=== PATIENT | female | born 1945 | race Caucasian/White ===

== ENCOUNTER → 2017-01-06 | Outpatient (CLI) | payer OTHER | LOC: BMCIMAGING 07:34 | DX: Z12.31 Encounter for screening mammogram for malignant neoplasm of breast (principal) | CPT/HCPCS: G0202 ==

== ENCOUNTER → 2018-02-04 | Outpatient (CLI) | payer OTHER | LOC: BMCIMAGING 12:55 | PROVIDERS: ATTEND Internal Medicine | DX: Z12.31 Encounter for screening mammogram for malignant neoplasm of breast (principal) ==

== ENCOUNTER → 2018-03-19 | Outpatient (CLI) | payer OTHER | LOC: FIMAGING 10:16 → EDSTATUS 10:17 | PROVIDERS: ATTEND Specialist | DX: N20.0 Calculus of kidney (principal) ==

== ENCOUNTER 2019-01-12 09:43 | Inpatient (IN) | payer OTHER ==
--- NOTE | 2019-01-12 06:37 | PDHPUP ---
History & Physical Update H&P update statement: This history and physical update is based on an assessment of the patient which was completed after admission or registration (within 24 hours), but prior to the surgery/procedure. H&P update: H&P reviewed & patient examined, no change in patient's condition since H&P completed
[2019-01-12] MEDS ORDERED: ceFAZolin 2 GM/DEXTROSE 100 ML IV ONE (09:50)
[2019-01-12] MEDS ORDERED: GABAPENTIN 300 MG CAP PO ONE (09:50)
[2019-01-12] MEDS ORDERED: ACETAMINOPHEN 500 MG TAB PO ONE (09:50)
[2019-01-12] MEDS ORDERED: LIDOCAINE 1% 2 ML INJ ID PRN (09:52)
[2019-01-12] MEDS ORDERED: LR 1,000 ML IV ONE (09:52)
[2019-01-12] MEDS ORDERED: BUPIVACAINE 0.25% 30 ML SDV ONE ×2 (10:04→11:02)
[2019-01-12] MEDS ORDERED: CHLORHEXIDINE GLUC HIBICLENS 118 ML BTL TP ONE ×2 (10:04→11:02)
[2019-01-12] MEDS ORDERED: THROMBIN (BOVINE) 5,000 UNIT VIAL TP ONE (10:04)
[2019-01-12] MEDS ORDERED: EPINEPHrine 1 MG/ML INJ ONE ×2 (10:05→11:02)
[2019-01-12] MEDS ORDERED: BACITRACIN 50,000 UNITS/10 ML SYR IRR ONE ×2 (10:05→11:02)
[2019-01-12] MEDS ORDERED: THROMBIN (BOVINE) 20,000 UNIT VIAL TP ONE (11:06)
--- NOTE | 2019-01-12 11:10 | PDANEPAE ---
ANE Past Medical History - Cardiovascular History Hx Hypertension: No Hx Arrhythmias: No Hx Chest Pain: No Hx Coronary Artery / Peripheral Vascular Disease: No Hx CHF / Valvular Disease: No Hx Palpitations: No Cardiovascular History Comment: Pt. denies HTN, states usual SBP is around 110. - Pulmonary History Hx COPD: No Hx Asthma/Reactive Airway Disease: No Hx Recent Upper Respiratory Infection: No Hx Oxygen in Use at Home: No Hx Sleep Apnea: No Sleep Apnea Screening Result - Last Documented: Negative - Neurologic History Hx Cerebrovascular Accident: No Hx Seizures: No Hx Dementia: No - Endocrine History Hx Diabetes: No Obesity: no - Renal History Hx Renal Disorders: No - Liver History Hx Hepatic Disorders: No - Neurological & Psychiatric Hx Hx Neurological and Psychiatric Disorders: No - Cancer History Hx Cancer: No - Congenital Disorder History Hx Congenital Disorders: No - GI History GERD: no Hx Gastrointestinal Disorders: No - Other Health History Other Health History: wears glasses. esophageal dysmotility - Chronic Pain History Chronic Pain: Yes (back) - Surgical History Prior Surgeries: lami and discectomy 1988. l4-5, l5-s1 fusion in 2003. l3-4 fusion in 2009. hysterectomy 1996. left meniscus repair in 1999. left shoulder scope, rtc with Virgilio 09/16/11 ANE Review of Systems Review of Systems: - Exercise capacity METS (RN): 4 METS ANE Patient History - Allergies Allergies/Adverse Reactions: acetaminophen [From Percocet] Allergy (Verified 12/27/18 11:12) NAUSEA aspirin [From Percodan] Allergy (Verified 12/27/18 11:12) NAUSEA fentanyl [Fentanyl] Allergy (Verified 12/27/18 11:12) NAUSEA hydrocodone bitartrate [From Vicodin] Allergy (Verified 12/27/18 11:12) NAUSEA oxycodone HCl [From Percocet] Allergy (Verified 12/27/18 11:12) NAUSEA oxycodone terephthalate [From Percodan] Allergy (Verified 12/27/18 11:12) NAUSEA - Home Medications Home Medications: Estradiol [Estradiol 1 MG (*)] 1 mg PO DAILY 12/20/18 [Last Taken 01/10/19] Latanoprost 0.005% [Xalatan 0.005% (*)] 1 drops EACHEYE HS 12/20/18 [Last Taken 01/11/19 22:00] Naproxen Sodium [Aleve 220 MG (*)] 220 mg PO BID PRN 12/20/18 [Last Taken ] Timolol 0.5% [TIMOPTIC 0.5% (*)] 1 drops EACHEYE BID 12/20/18 [Last Taken 07:30] - Anes Hx Anes Hx: no prior problems - Smoking Hx Smoking Status: Former smoker Marijuana use: No - Alcohol Use Alcohol Use: None - Family Anes Hx Family Anes Hx: none Family Hx Anesthesia Complications: none ANE Labs/Vital Signs - Vital Signs Blood Pressure: 151/79 Heart Rate: 62 O2 Sat (%): 98 Height: 159.5 cm Weight: 47.9 kg ANE Physical Exam - Airway Neck exam: FROM Mallampati Score: Class 2 Mouth exam: normal dental/mouth exam - Pulmonary Pulmonary: clear to auscultation - Cardiovascular Cardiovascular: regular rate and rhythym - ASA Status ASA Status: II ANE Anesthesia Plan Anesthesia Plan: general endotracheal anesthesia
[2019-01-12] MEDS ORDERED: LACTULOSE 20 GM/30 ML UDCUP PO PRN (11:11)
[2019-01-12] MEDS ORDERED: BISACODYL 10 MG SUPP PR PRN (11:11)
[2019-01-12] MEDS ORDERED: HYDROmorphONE/DILAUDID 1 MG/ML INJ IVP PRN (11:11)
[2019-01-12] MEDS ORDERED: MAGNESIUM HYDROXIDE 30 ML UDCUP PO PRN (11:11)
[2019-01-12] MEDS ORDERED: ONDANSETRON 4 MG/2 ML VIAL IVP PRN ×2 (11:11→15:28)
[2019-01-12] MEDS ORDERED: diphenhydrAMINE 25 MG CAP PO PRN (11:11)
[2019-01-12] MEDS ORDERED: NS 1,000 ML IV SCH (11:15)
[2019-01-12] MEDS ORDERED: DEXAMETHASONE 4 MG/ML VIAL ONE (11:28)
[2019-01-12] MEDS ORDERED: PROPOFOL/EMULSION 500 MG/50 ML BOTTLE IV ONE (11:28)
[2019-01-12] MEDS ORDERED: PHENYLEPHRINE 10 MG/ML SDV ONE (11:47)
--- NOTE | 2019-01-12 11:49 | PDMN ---
Medical Necessity Medical necessity: [facility] IP only surgery; cpt 38016 Lumbar Fusion (L1-L3 TLIF w/ tie in fusion)
[2019-01-12] MEDS ORDERED: ePHEDrine SULFATE 25 MG/5 ML SYR ONE (13:02)
[2019-01-12] MEDS ORDERED: ceFAZolin 2 GM/DEXTROSE 100 ML IV SCH (14:00)
[2019-01-12] MEDS ORDERED: PROPOFOL 200 MG/20 ML VIAL ONE (14:31)
[2019-01-12] MEDS ORDERED: NALOXONE HCL 0.4 MG/ML INJ IVP PRN (15:28)
--- NOTE | 2019-01-12 16:03 | POSTOPPROG ---
Post Op Note Date of Operation: 01/12/19 Surgeon: Reva Bell Inspector Air Carrier: KWADWO Bermeo Anesthesiologist: MD Titus Anesthesia: GET(General Endotracheal), Local (Specify) Pre-op Diagnosis: lumbar stenosis L1/2 and L2/3 Post-op Diagnosis: lumbar stenosis L1/2 and L2/3 Indication: LE pain/LBP Procedure: TLIF L1/2 and L2/3 with PSF L1-L4 Findings: see op report Inf/Abcess present in the surg proc area at time of surgery?: No Depth: Deep Incisional (Fascial) EBL: 100-500 Total fluids administered: see anesthesia report Complications: none Drains: Rod Coronado
--- NOTE | 2019-01-12 16:10 | SOAPPROG ---
SOAP Progress Note Assessment/Plan: Post Op Visit: S: Awake and alert. NAD. Pt with expected lower back pain O: AFVSS/PERRLA/EOMI no droop CN 2-12 grossly intact +lt touch 5/5 BUE/BLE = CDI MADI in place A/P: 73 yo female that is s/p L1/2 and L2/3 TLIF with tie into L1-L4 fusion ( prior hx of fusion down to S1) -orders in place -call with any questions or concerns -pt seen by Dr Bell -PT/OT in am -brace when out of bed-pt has brace at home -no B/T/L -Pt understands and agrees 01/12/19 16:11 Objective: Vital Signs Temp Pulse Resp BP Pulse Ox 36.9 C 62 16 151/79 H 98 01/12/19 10:42 01/12/19 12:30 01/12/19 10:42 01/12/19 12:30 01/12/19 12:30 ICD10 Worksheet Patient Problems: Problems Problem Status Onset Arthrodesis status Acute Lumbar radicular pain Acute Lumbar stenosis Acute - ICD10 Problem Qualifiers (1) Lumbar stenosis (2) Lumbar radicular pain (3) Arthrodesis status
--- NOTE | 2019-01-12 16:17 | POSTANESTH ---
Post Anesthetic Evaluation Cardiovascular Status: Similar to Pre-Op Cond Respiratory Status: Normal, Stable Level of Consciousness/Mental Status: Can Participate in Eval Pain Control: Adequate, Prn Tx Ordered Nausea/Vomiting Control: Adequate, Prn Tx Ordered Complications Possibly Related to Anesthesia: None Noted
[2019-01-12] MEDS ORDERED: ONDANSETRON 4 MG/2 ML VIAL ONE (17:01)
[2019-01-12] MEDS ORDERED: HYDROmorphONE/DILAUDID 2 MG/ML INJ ONE (17:09)
[2019-01-12] MEDS: HYDROmorphONE/DILAUDID 2 MG/ML INJ IVP PRN ×3 (17:10→17:30)
[2019-01-12] MEDS: METHOCARBAMOL 750 MG TAB PO PRN (17:19)
[2019-01-12] MEDS ORDERED: METHOCARBAMOL 750 MG TAB ONE (17:19)
--- NOTE | 2019-01-12 18:03 | GOP ---
[f rep st] OPERATIVE REPORT DATE OF OPERATION: 01/12/2019 SURGEON: Lalo Bell MD NEUROSURGEON: Lalo Bell MD. 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 POSTOPERATIVE DIAGNOSIS: Adjacent segment disease, L1-2, L2-3 above a prior L3-S1 fusion, severe migue nosis L2-3, moderately severe stenosis L1-2, bilateral lumbosacral radiculopathy, left worse than rig ht, disk degenerative disease L1-2, L2-3. PROCEDURE PERFORMED: Posterior lateral and intervertebral arthrodesis with bilateral decompressions L1-2, L2-3 (49813, 20048), removal of posterior nonsegmental instrumentation at L3-4 (03177), placeme nt of new segmental instrumentation L1, L2, L3, L4 (38446), placement of biomechanical intervertebral device L1-2, L2-3, same incision bone graft harvest, microscope, spinal stereotaxis. FINDINGS: ESTIMATED BLOOD LOSS: 200 cc. INDICATIONS: The patient is a 73-year-old with a prior successful L3 to S1 fusion done not at the [facility] time, but the most recent one was a single-level fusion at L3-4 with good results. She developed severe adjacent segment disease and has had terrible symptoms really for more than 2 years and finall y decided she wanted to have surgery. She had bilateral lumbosacral radiculopathy. The left is curr ently worse than the right, but she had a history of severe right-sided lumbosacral radiculopathy as well. The risk of the surgery, including the risk of continued symptoms, nerve injury, spinal fluid leak, infection, adjacent segment disease, possible failure of the surgery to alleviate her symptoms, as well as risk of pseudoarthrosis and the need for future spine surgery was discussed. She knew th ere was risk of screw and hardware failure and malposition and she wanted to proceed. DESCRIPTION OF PROCEDURE: Patient was taken to the operating room, placed in supine position. Gener al anesthesia was begun. She was flipped prone onto the Rod table. Care was taken to pad all po ints of contact. Her back was sterilely prepped and draped in usual fashion. A localizing x-ray was taken. We made a midline incision from the spinous process of T12 down to the spinous process of L3. The peña bcutaneous tissue was dissected using plasma blade down through the fascia and a subperiosteal dissec tion was made down the L1, L2, L3, and lamina. We exposed the hardware at L3-4. We removed the hard trinh. There was no complication from the prior hardware. It was well positioned. Three of the scre ws were 6.5 mm. The left L4 screw was 7.5 mm. It was slightly lateral than the other screws, but is in good position. We decorticated the bone in this location to allow strengthening of the arthrodes is there and arthrodesis for L2 to the L3 level. We denuded the bilateral L1-2 and 2-3 facet joints. We preserved the T12-L1 facet joint. We then at tached the Connect reference frame to the spinous process, performed an O-arm spin and using frameles s Stealth stereotaxy, placed pedicle screws bilaterally at L1, L2, L3, and L4. We used 6.5 mm screws throughout, except on the left at L4 where we replaced it with a 7.5 x 45 mm screw. All the screws stimulated at acceptable levels. An O-arm spin was made, all the screws in excellent position. We t ook 100 mm rods, placed them down over the screws, distracted between L1 and L4. We were distracted on the right, and we ultimately allowed no distraction on the left. We did use initial distraction o n the left to get the right-sided over-distracted to correct her degenerative scoliosis that was abov e the fusion. We ended up cutting the jojo on the left, the size is about 95 mm jojo. We final tighte nena the cap screws according to company specification and we had reduced the degenerative scoliotic c urve for the most part. We then removed the soft tissue of the bone at L1, L2, and L3, harvested the complete L2 spinous proc ess, the inferior L1 spinous process, and the rostral L3 spinous process. Used a high-speed drill to drill bilateral laminectomies of L1-2, 2-3 and got great decompressions at both levels. We have per formed complete right-sided facetectomies at L1-2 and L2-3. To allow access to the disk space, we we nt on the right-hand side as this was the concave side of the spine, but we did really radical latera l recess decompressions on the left at L1-2 and 2-3 to get great left-sided decompressions as well. We then swept the L3 nerve root medially, and from the right-sided approach, removed the L2-3 disk an d the cartilaginous endplates. We roughened the subchondral bone to create arthrodesis. We did, lik ewise, at L1-2, sweeping the L2 nerve root medially, incising the L1-2 disk, removing the disk and th e cartilaginous endplates. We roughened the subchondral bone to create arthrodesis there. We chose a 7 mm CrESCENT cage for that level. We chose an expandable 7 x 28 mm cage at L2-3 based up on the anatomy. We then place BMP and bone into the interspace at L1-2, 2 3 and then followed this w ith the expandable cage at L2-3 and the CrESCENT cage at L1-2. X-rays were taken. The hardware was in excellent position. We then decorticated all the remaining bone posterolaterally bilaterally at L 1-2, 2-3. Final tightened all the cap screws according to company specification, placed a subfascial drain, and then closed the incision in multiple layers using Vicryl sutures. There were no complica tions. COMPLICATIONS: None. HARDWARE: Hardware removed was Possibly [employer]. It was implanted by an outside surgeon. There wa s no problem with the prior hardware. The new hardware was BECC 5.5 mm Solera system with 100 m m rods. /[id number]/MODL
[2019-01-12] MEDS: GABAPENTIN 300 MG CAP PO SCH ×2 (19:42→21:22)
[2019-01-12] MEDS: TIMOLOL 0.5% 15 ML OPHT.BTL EACHEYE SCH ×2 (19:42→23:42)
[2019-01-12] MEDS: ESTRADIOL 1 MG TAB PO SCH (19:59)
[2019-01-12] MEDS: ceFAZolin 2 GM/DEXTROSE 100 ML IV SCH (21:21)
[2019-01-12] MEDS: FAMOTIDINE 20 MG TAB PO SCH (21:21)
[2019-01-12] MEDS: ONDANSETRON DISINTEGRATING 4 MG TAB PO PRN (21:21)
[2019-01-12] MEDS: SENNOSIDES/DOCUSATE SODIUM TAB PO SCH (21:22)
[2019-01-12] MEDS: LATANOPROST 0.005% 2.5 ML OPHT DROPS EACHEYE SCH (23:42)
[2019-01-13] MEDS: METHOCARBAMOL 750 MG TAB PO PRN ×2 (03:54→11:06)
[2019-01-13] MEDS: ceFAZolin 2 GM/DEXTROSE 100 ML IV SCH (05:05)
[2019-01-13] MEDS: GABAPENTIN 300 MG CAP PO SCH (05:05)
[2019-01-13 05:39] LABS: PLATELET COUNT 171 10^3/uL (150-400)
[2019-01-13] MEDS: ONDANSETRON DISINTEGRATING 4 MG TAB PO PRN (05:40)
--- NOTE | 2019-01-13 07:59 | NEUSURGPN ---
Assessment/Plan: A/P: 73 yo female that is s/p L1/2 and L2/3 TLIF with tie into L1-L4 fusion ( prior hx of fusion down to S1) POD1 -Post op xrays pending -Continue MADI drain this am, will reval for for removal later -Optimize pain management: Increased right leg pain, gabapentin increased to 400mg PO tid this morning -PT/OT -brace when out of bed -Discussed with Dr Bell -call with any questions or concerns Subjective: right lateral /anterior leg pain. Denies any new weakness. low back pain Objective: NAD A&Ox3 MAEx4 5/5 and equal in BUE and BLE Incisional dressing c/d/i MADI drain serosanignous - Physician Discussed Patient with : Ray Neurosurgery Physical Exam - Vitals, I&O, Labs I and O 01/12/19 01/13/19 01/14/19 05:59 05:59 05:59 Intake Total 3115 Output Total 1290 Balance 1825 Weight 47.9 kg Intake: Oral (ml) 15 IV Intake (ml) 2000 IV Infused (ml) 1100 Ns 1,000 ml @ 75 mls/hr 900 IV CONT MARTHA Rx#: [id number] ceFAZolin 2 GM/DEXTROSE 200 100 ml @ 200 mls/hr IV Q8HRS MARTHA Rx#:[id number] Output: Urine (ml) 630 Catheter 630 Estimated Blood Loss (ml) 200 MADI Drain Output (ml) 460 #1 Right Back Rod 460 Coronado Vital Signs Temp Pulse Resp BP Pulse Ox 36.6 C 73 16 118/63 97 01/13/19 03:35 01/13/19 03:35 01/13/19 03:35 01/13/19 03:35 01/13/19 03:35 Laboratory Results 01/13/19 04:54 01/13/19 04:54 ICD10 Worksheet Patient Problems: Problems Problem Status Onset Arthrodesis status Acute Lumbar radicular pain Acute Lumbar stenosis Acute
[2019-01-13] MEDS ORDERED: GABAPENTIN 400 MG CAP PO SCH (08:00)
[2019-01-13] MEDS: FAMOTIDINE 20 MG TAB PO SCH ×2 (08:55→22:54)
[2019-01-13] MEDS: ESTRADIOL 1 MG TAB PO SCH (08:57)
[2019-01-13] MEDS: SENNOSIDES/DOCUSATE SODIUM TAB PO SCH ×2 (08:58→22:54)
[2019-01-13] MEDS: TIMOLOL 0.5% 15 ML OPHT.BTL EACHEYE SCH ×2 (10:44→22:55)
[2019-01-13] MEDS: GABAPENTIN 400 MG CAP PO SCH ×2 (13:21→22:53)
--- NOTE | 2019-01-13 13:56 | ASMTCMCOM ---
CM Note CM Note Notes: Pt s/p L1/2 and L2/3 TLIF with tie in fusion. OT rec home, Pt declined PT due to pain today. Pt was pre-arranged with [facility] by MD office prior to surgery, spoke with pt today and she declines C. CM to follow pt progress. Date Signed: 01/13/2019 01:55 PM Electronically Signed By:CHANCE Stark
[2019-01-13] MEDS: LATANOPROST 0.005% 2.5 ML OPHT DROPS EACHEYE SCH (22:55)
[2019-01-14] MEDS: GABAPENTIN 400 MG CAP PO SCH (05:08)
[2019-01-14] MEDS: METHOCARBAMOL 750 MG TAB PO PRN ×2 (06:15→15:54)
--- NOTE | 2019-01-14 08:22 | SOAPPROG ---
SOAP Progress Note Assessment/Plan: Assessment: 73 yo female s/p L1/2,2/3 TLIFs Ongoing right leg pain unchanged since surgery no new weakness or tingling Plan: LSO when OOB PT/OT as tolerated today xrays Lumbar spine today 01/14/19 08:20 Subjective: LYing in bed, appears comfortable, but complains of ongoing right leg pain. Unchanged since surgery Denies any new numbness, tingling or weakness Objective: Vital Signs Temp Pulse Resp BP Pulse Ox 36.7 C 71 16 145/81 H 92 01/14/19 04:47 01/14/19 04:47 01/14/19 04:47 01/14/19 04:47 01/14/19 04:47 Laboratory Results 01/13/19 04:54 01/13/19 04:54 01/13/19 01/14/19 01/15/19 05:59 05:59 05:59 Intake Total 3115 301 Output Total 1290 1725 Balance 1825 -1424 Neuro: A+Ox4 follows commands 5/5 bilateral LE,sens +LT Dressing: CDI MADI: 275ml ICD10 Worksheet Patient Problems: Problems Problem Status Onset Arthrodesis status Acute Lumbar radicular pain Acute Lumbar stenosis Acute
[2019-01-14] MEDS: SENNOSIDES/DOCUSATE SODIUM TAB PO SCH ×2 (09:24→21:08)
[2019-01-14] MEDS: ESTRADIOL 1 MG TAB PO SCH (09:25)
[2019-01-14] MEDS: TIMOLOL 0.5% 15 ML OPHT.BTL EACHEYE SCH ×2 (09:25→21:26)
[2019-01-14] MEDS: FAMOTIDINE 20 MG TAB PO SCH ×2 (09:25→21:08)
[2019-01-14] MEDS: GABAPENTIN 300 MG CAP PO SCH ×3 (15:20→21:07)
[2019-01-14] MEDS: POLYETHYLENE GLYCOL 3350 17 GM PKT PO PRN (15:53)
[2019-01-14] MEDS: LATANOPROST 0.005% 2.5 ML OPHT DROPS EACHEYE SCH (21:26)
[2019-01-15] MEDS: GABAPENTIN 300 MG CAP PO SCH ×3 (06:05→21:08)
--- NOTE | 2019-01-15 09:34 | SOAPPROG ---
SOAP Progress Note Assessment/Plan: Assessment: 73 yo F POD #3 L1-3 TLIF Plan: neuro: stable, nerve pain in right anterior thigh with walking, on neurontin, will follow for now PT/OT post op x-rays look good scd/bárbara/lovenox for dvt prophylaxis MADI x 1 please call with neuro changes 01/15/19 09:31 Subjective: continued back pain, pain in right thigh with walking. no weakness. Objective: Vital Signs Temp Pulse Resp BP Pulse Ox 36.8 C 65 16 132/68 H 98 01/15/19 07:27 01/15/19 07:27 01/15/19 07:27 01/15/19 07:27 01/15/19 07:27 Laboratory Results 01/13/19 04:54 01/13/19 04:54 01/14/19 01/15/19 01/16/19 05:59 05:59 05:59 Intake Total 301 800 400 Output Total 1725 1150 200 Balance -1424 -350 200 AAOx4 ,+FC PERRL, EOMI, no facial droop 5/5 + light touch C/D/I ICD10 Worksheet Patient Problems: Problems Problem Status Onset Arthrodesis status Acute Lumbar radicular pain Acute Lumbar stenosis Acute
[2019-01-15] MEDS: SENNOSIDES/DOCUSATE SODIUM TAB PO SCH ×2 (09:44→21:12)
[2019-01-15] MEDS: ESTRADIOL 1 MG TAB PO SCH (09:45)
[2019-01-15] MEDS: FAMOTIDINE 20 MG TAB PO SCH ×2 (09:46→21:07)
[2019-01-15] MEDS: ENOXAPARIN 40 MG/0.4 ML SYR SC SCH (09:46)
[2019-01-15] MEDS: TIMOLOL 0.5% 15 ML OPHT.BTL EACHEYE SCH ×2 (09:48→22:59)
[2019-01-15] MEDS: METHOCARBAMOL 750 MG TAB PO PRN ×2 (12:18→21:12)
[2019-01-15] MEDS: POLYETHYLENE GLYCOL 3350 17 GM PKT PO PRN (21:13)
[2019-01-15] MEDS: LATANOPROST 0.005% 2.5 ML OPHT DROPS EACHEYE SCH (22:57)
[2019-01-16] MEDS: GABAPENTIN 300 MG CAP PO SCH ×4 (05:49→20:54)
[2019-01-16] MEDS: METHOCARBAMOL 750 MG TAB PO PRN ×2 (05:49→13:28)
[2019-01-16] MEDS: ESTRADIOL 1 MG TAB PO SCH (09:22)
[2019-01-16] MEDS: FAMOTIDINE 20 MG TAB PO SCH ×2 (09:23→20:54)
[2019-01-16] MEDS: SENNOSIDES/DOCUSATE SODIUM TAB PO SCH ×2 (09:24→20:54)
[2019-01-16] MEDS: ENOXAPARIN 40 MG/0.4 ML SYR SC SCH (09:24)
[2019-01-16] MEDS: TIMOLOL 0.5% 15 ML OPHT.BTL EACHEYE SCH ×2 (09:26→19:30)
--- NOTE | 2019-01-16 10:36 | SOAPPROG ---
ALFREDO Progress Note Assessment/Plan: Assessment: 73 yo F POD #4 L1-3 TLIF Plan: neuro: stable, nerve pain in right anterior thigh with walking, on neurontin, will follow for now PT/OT post op x-rays look good scd/bárbara/lovenox for dvt prophylaxis MADI x 1 please call with neuro changes 01/15/19 09:31 01/16/19 10:34 Subjective: back pain improving, some pain in right thigh, slightly better than yesterday. Objective: Vital Signs Temp Pulse Resp BP Pulse Ox 36.9 C 68 16 138/75 H 100 01/16/19 07:10 01/16/19 07:10 01/16/19 07:10 01/16/19 07:10 01/16/19 07:10 Laboratory Results 01/13/19 04:54 01/13/19 04:54 01/15/19 01/16/19 01/17/19 05:59 05:59 05:59 Intake Total 800 700 350 Output Total 1150 750 250 Balance -350 -50 100 AAOx4, +FC PERRL, EOMI, no facial droop 5/5 + light touch C/D/I ICD10 Worksheet Patient Problems: Problems Problem Status Onset Arthrodesis status Acute Lumbar radicular pain Acute Lumbar stenosis Acute
--- NOTE | 2019-01-16 13:48 | ASMTCMCOM ---
CM Note CM Note Notes: Patient is nearing discharge, so I checked in w her to inquire about her feelings on home health. She still refuses. PT and RN notified. Anticipate d/c home w . Current CM Discharge plan: home independent w outpt NS f/u Date Signed: 01/16/2019 01:48 PM Electronically Signed By:Jaki Henry RN
[2019-01-16] MEDS: LATANOPROST 0.005% 2.5 ML OPHT DROPS EACHEYE SCH (20:53)
[2019-01-17] MEDS: GABAPENTIN 300 MG CAP PO SCH ×4 (02:19→15:13)
--- NOTE | 2019-01-17 06:56 | NEUSURGPN ---
Date of Surgery: 01/12/19 Post Op Day: 5 Assessment/Plan: Assessment: 73 yo F POD #5 s/p L1-3 TLIF Plan: -neuro: stable, nerve pain in right anterior thigh with walking that is better c /w Thursday, on neurontin, will continue to follow -continue with PT/OT -post op x-rays look good -scd/bárbara/lovenox for dvt prophylaxis -MADI site looks fine/CDI -pt ready for dc home -call with any questions or concerns -please call with neuro changes -pt understands and agrees -pt seen by Dr Bell as well Subjective: Awake and alert. NAD. Eating/drinking and voiding. No f/c/n/v/d. No wolf/neck/ chest/abd or gu complaints. Objective: AFVSS/PERRLA/EOMI no droop CN 2-12 grossly intact +lt touch 5/5 BUE/BLE = CDI Neuro Check Frequency: per routinme Urinary Catheter in Place: No - Physician Discussed Patient with DrTavon: Ray Patient Seen by : Ray Neurosurgery Physical Exam - Vitals, I&O, Labs I and O 01/16/19 01/17/19 01/18/19 05:59 05:59 05:59 Intake Total 700 1150 Output Total 750 475 Balance -50 675 Intake: Oral (ml) 700 1150 Output: Urine (ml) 750 475 Bedside Commode 450 Toilet 300 475 Other: Intake Quantity Yes Sufficient Number of Voids Bedside Commode 1 Toilet 1 2 Number of Stools Toilet 1 Vital Signs Temp Pulse Resp BP Pulse Ox 37.3 C 73 16 128/66 H 93 01/16/19 23:47 01/16/19 23:47 01/16/19 23:47 01/16/19 23:47 01/16/19 23:47 Laboratory Results 01/13/19 04:54 01/13/19 04:54 ICD10 Worksheet Patient Problems: Problems Problem Status Onset Arthrodesis status Acute Lumbar radicular pain Acute Lumbar stenosis Acute - ICD10 Problem Qualifiers (1) Lumbar stenosis (2) Lumbar radicular pain (3) Arthrodesis status
[2019-01-17] MEDS: ENOXAPARIN 40 MG/0.4 ML SYR SC SCH (08:22)
[2019-01-17] MEDS: ESTRADIOL 1 MG TAB PO SCH (08:25)
[2019-01-17] MEDS: SENNOSIDES/DOCUSATE SODIUM TAB PO SCH (08:26)
[2019-01-17] MEDS: TIMOLOL 0.5% 15 ML OPHT.BTL EACHEYE SCH (08:26)
[2019-01-17] MEDS: FAMOTIDINE 20 MG TAB PO SCH (08:26)
[2019-01-17] MEDS: METHOCARBAMOL 750 MG TAB PO PRN (08:41)
[2019-01-17 13:49] VITALS: BP 128/73
[2019-01-17] MEDS ORDERED: NS 1,000 ML IV SCH (14:15)
--- NOTE | 2019-01-17 16:01 | GCON ---
[f rep st] CONSULTATION DATE OF CONSULTATION: 01/17/2019 REFERRING PHYSICIAN: Dr. Bell REASON FOR CONSULTATION: Syncope. HISTORY OF PRESENT ILLNESS: A 73-year-old female with chronic back pain secondary to stenosis postop day #5, L1-L3 TLIF by Dr. Bell. I was consulted today because she possibly had a few seconds of l oss of consciousness today. She cannot recall. She was sitting in her chair trying undo a couple sh irts that were tied together and then realized she was being moved to the bed. She denied any dizzin ess, lightheadedness, chest pain, fevers, chills, sweats, nausea, or vomiting. Has had 1 loose stool a day from laxatives. She has not been drinking or eating much. She says she eats like a bird at h ome. She had a syncopal episode postop day 1 after walking from the bathroom to the bed in which she fell. Prior to that, she did note lightheadedness. She walks 45 minutes a day at home without chest pain , shortness of breath, dizziness, or lightheadedness. REVIEW OF SYSTEMS: I completed a 10-point review of systems, negative except as noted in HPI. PAST MEDICAL HISTORY: Chronic back pain secondary to spinal stenosis and DJD. PAST SURGICAL HISTORY: Four spinal surgeries in 1988, 2003, 2009, and 2018. Hysterectomy, knee meni scus repair, rhinoplasty, tonsillectomy, shoulder surgery. FAMILY HISTORY: No heart attacks or strokes. SOCIAL HISTORY: She lives with her significant other named Reg. She is a vegan. Lives in [place] . No alcohol, tobacco, or illicits. HOME MEDICATIONS: Xalatan eye drops, estradiol, morphine, senna, Robaxin, gabapentin. ALLERGIES: Tylenol, aspirin, fentanyl, hydrocodone, oxycodone. PHYSICAL EXAMINATION: VITAL SIGNS: Temperature 37.3, blood pressure supine 133/60 and heart rate 75 , sitting 110/67 and heart rate 76, and standing 112/62. Respiration 14, 93% on room air. GENERAL: Lying in bed, in no acute distress. HEENT: PERRLA. Dry mucous membranes. CV: Regular rate and r hythm. No murmurs, gallops, or rubs. LUNGS: Clear. ABDOMEN: Soft, nontender, nondistended. Posi tive bowel sounds. : No Jolly. MUSCULOSKELETAL: Surgical incision healing well. No surrounding erythema or purulence. NEURO: 2 through 12 intact. PSYCH: Alert and oriented x3. DIAGNOSTICS: Sodium 138, potassium 4, chloride 102, carbon dioxide 30, creatinine 0.7, glucose 143, calcium 9.3. Troponin less than 0.012. WBC 13 (down from 17 on 01/13), hemoglobin 10, hematocrit 33 , platelets 247. EKG is personally reviewed by me, normal sinus rhythm, shortened NH interval. ASSESSMENT AND PLAN: 1. Presyncope versus syncope: Unclear if true syncope today. Did have an episode of syncope postop day 1 which was likely contributed to medications. Her labs are reassuring with a negative troponin , EKG. Has a mild white count. Suspect this is stress reaction from surgery. She denies any infect ious symptoms. Afebrile. Surgical incision is healing well. She has positive orthostatic vital sig ns. Will bolus 1 L of fluid. Endorses not eating or drinking much. I do query if she has eating di sorder. 2. Chronic low back pain status post L1 through 3 transforaminal lumbar interbody fusion: Managemen t per Neurosurgery. 3. Prophylaxis: Lovenox. Thank you for this consultation. If you have any questions, please call. I did discuss with Roberto Bermeo. /[id number]/MODL
--- NOTE | 2019-01-17 16:50 | ASMTDCNOTE ---
Case Management Discharge Discharge Order Complete? Answers: Yes Patient to Obtain Answers: via Family Medications Transportation Arranged Answers: Family/Friends Transport will Pick (Date 01/17/2019 12:00 AM & Time) Family Notified Answers: Yes Notes: called by pt. Discharge Comments Notes: Spoke with RN. Pt refusing home care at this time, though therapies are recommending. Pt has support at home with significant other. CM confirmed this yesterday as well. No further CM needs noted at this time. Date Signed: 01/17/2019 04:49 PM Electronically Signed By:Parvin Yanez
--- NOTE | 2019-01-17 16:51 | ASMTLACE ---
LACE Length of stay for Answers: 4-6 days current admission Acuity / Level of Answers: Yes Care: Did the patient have an inpatient admission? Comorbidities - select Answers: Opioid dependence all that apply / Chronic pain Other Notes: stenosis, DDD, spondy # of Emergency department Answers: 0 visits in the last 6 months Score: 12 Date Signed: 01/17/2019 04:51 PM Electronically Signed By:Parvin Yanez
--- NOTE | 2019-01-17 16:54 | ASMTCMCOM ---
CM Note CM Note Notes: ADDENDUM: Pt given Loan Closet List by PT for sharan. Date Signed: 01/17/2019 04:54 PM Electronically Signed By:Parvin Yanez
--- NOTE | 2019-01-17 16:55 | ASDISCHSUM ---
Discharge Information Plan Status:Home with No Needs Medically Cleared to Leave:01/16/2019 Discharge Date:01/16/2019 CM D/C Disposition:Home, Routine, Self-Care ADT D/C Disposition:Home, Routine, Self-Care Projected Discharge Date:01/16/2019 Transportation at D/C:Family Discharge Delay Reason: Follow-Up Date:01/16/2019 Discharge Slot: Final Diagnosis:spondy, stenosis, DDD, Radiculopathy Placement Information Patient Contact Information Contact Name:LIZA Relationship:Life Partner Address:[address] Work Phone: City:[place] Alternate Phone: [facility]/Zip Code:[place] [address] Email: Financial Information Financial Class:Medicare Primary Plan Desc:MEDICARE INPATIENT Primary Plan Number:[id number] Secondary Plan Desc:[employer] Secondary Plan Number:[id number] Assessment Information LACE LACE Length of stay for Answers: 4-6 days current admission Acuity / Level of Answers: Yes Care: Did the patient have an inpatient admission? Comorbidities - select Answers: Opioid dependence all that apply / Chronic pain Other Notes: stenosis, DDD, spondy # of Emergency department Answers: 0 visits in the last 6 months Score: 12 Date Signed: 01/17/2019 04:51 PM Electronically Signed By:Parvin Yanez [facility] CM Progress Note CM Note CM Note Notes: Pt s/p L1/2 and L2/3 TLIF with tie in fusion. OT rec home, Pt declined PT due to pain today. Pt was pre-arranged with [facility] by MD office prior to surgery, spoke with pt today and she declines [facility]. CM to follow pt progress. Date Signed: 01/13/2019 01:55 PM Electronically Signed By:CHANCE Stark [facility] CM Progress Note CM Note CM Note Notes: Patient is nearing discharge, so I checked in w her to inquire about her feelings on home health. She still refuses. PT and RN notified. Anticipate d/c home w . Current CM Discharge plan: home independent w outpt NS f/u Date Signed: 01/16/2019 01:48 PM Electronically Signed By:Jaki Henry RN Case Management Discharge Plan Note Case Management Discharge Discharge Order Complete? Answers: Yes Patient to Obtain Answers: via Family Medications Transportation Arranged Answers: Family/Friends Transport will Pick (Date 01/17/2019 12:00 AM & Time) Family Notified Answers: Yes Notes: called by pt. Discharge Comments Notes: Spoke with RN. Pt refusing home care at this time, though therapies are recommending. Pt has support at home with significant other. CM confirmed this yesterday as well. No further CM needs noted at this time. Date Signed: 01/17/2019 04:49 PM Electronically Signed By:Parvin Yanez [facility] CM Progress Note CM Note CM Note Notes: ADDENDUM: Pt given Ceci Dang List by PT amy tsang. Date Signed: 01/17/2019 04:54 PM Electronically Signed By:Parvin Yanez Intervention Information Intervention Type:*IM-Signed Date of Service:01/14/2019 02:56 PM Patient Type:Inpatient Staff Member:Norma Randolph Hours: Discipline: Severity: Comment:
--- NOTE | 2019-01-19 11:07 | CPEKG ---
Test Reason : OPEN Blood Pressure : / mmHG Vent. Rate : 053 BPM Atrial Rate : 054 BPM P-R Int : 095 ms QRS Dur : 089 ms QT Int : 505 ms P-R-T Axes : 053 048 015 degrees QTc Int : 475 ms Sinus rhythm Short CT interval Confirmed by Nahum Jacobsen ([id number]) on 01/19/2019 11:07:14 AM Referred By: Reva GONG Confirmed By:Nahum Jacobsen
--- NOTE | 2019-01-19 12:20 | CPEKG ---
Test Reason : OPEN Blood Pressure : / mmHG Vent. Rate : 069 BPM Atrial Rate : 068 BPM P-R Int : 106 ms QRS Dur : 085 ms QT Int : 372 ms P-R-T Axes : 077 066 033 degrees QTc Int : 399 ms Sinus rhythm Short VA interval Confirmed by Nahum Jacobsen ([id number]) on 01/19/2019 12:20:12 PM Referred By: Reva GONG Confirmed By:Nahum Jacobsen
--- NOTE | 2019-01-20 16:23 | CPEKG ---
Test Reason : OPEN Blood Pressure : / mmHG Vent. Rate : 051 BPM Atrial Rate : 051 BPM P-R Int : 093 ms QRS Dur : 088 ms QT Int : 504 ms P-R-T Axes : 041 039 000 degrees QTc Int : 465 ms Sinus rhythm Short RI interval Nonspecific T abnormalities, anterior leads Confirmed by Nahum Jacobsen ([id number]) on 01/20/2019 4:22:40 PM Referred By: Reva GONG Confirmed By:Nahum Jacobsen
== END 2019-01-17 17:01 | disposition home or self-care (01) | DRG 455 ==
LOC: F3N 09:43
PROVIDERS: ADMIT Neurological Surgery; ATTEND Neurological Surgery
DX: M48.061 Spinal stenosis, lumbar region without neurogenic claudication (principal); R55 Syncope and collapse; M51.36 Other intervertebral disc degeneration, lumbar region; M51.17 Intervertebral disc disorders with radiculopathy, lumbosacral region; Z87.891 Personal history of nicotine dependence; G89.29 Other chronic pain
CPT/HCPCS: 97116-GP; 97161-GP; 97165-GO; 97530-GP; 97535-GO; C1713; J0171; J0690; J1100; J1170; J1650; J2270; J2370; J2405; J2704